=== PATIENT | male | born 1965 | race Two or more races ===

== ENCOUNTER 2018-11-12 19:22 | Emergency (ER) | payer SELFPAY ==
--- NOTE | 2018-11-12 21:32 | C.PDOC ---
History Of Present Illness 53 y/o male is brought in by ambulance for public intoxication. Patient had no prior visits here. Alcohol on breath noted. Patient denies any physical complaints. Time Seen by Provider: 11/12/18 19:25 Chief Complaint (Nursing): Substance Abuse History Per: EMS History/Exam Limitations: no limitations Onset/Duration Of Symptoms: Hrs Current Symptoms Are (Timing): Still Present Past Medical History Reviewed: Historical Data, Nursing Documentation, Vital Signs Vital Signs: Last Vital Signs Temp 97.2 F L 11/12/18 19:39 Pulse 82 11/12/18 19:39 Resp 16 11/12/18 19:39 BP 122/69 11/12/18 19:39 Pulse Ox 98 11/12/18 19:39 Family History: States: No Known Family Hx - Social History Hx Alcohol Use: Yes Hx Substance Use: No - Immunization History Hx Tetanus Toxoid Vaccination: No Hx Influenza Vaccination: No Hx Pneumococcal Vaccination: No Review Of Systems Except As Marked, All Systems Reviewed And Found Negative. Psych: Positive for: Other (alcohol intoxication) Physical Exam - Physical Exam Appears: Non-toxic, No Acute Distress, Other (alcohol on breath) Skin: Warm, Dry Head: Atraumatic, Normacephalic Eye(s): bilateral: Normal Inspection Oral Mucosa: Moist Neck: Supple Cardiovascular: Rhythm Regular, No Murmur Respiratory: Normal Breath Sounds, No Rales, No Rhonchi, No Wheezing Extremity: Bilateral: Atraumatic, Normal Color And Temperature, Normal ROM Neurological/Psych: Normal Speech, Other (Awake and alert) ED Course And Treatment O2 Sat by Pulse Oximetry: 98 (RA) Pulse Ox Interpretation: Normal Medical Decision Making Medical Decision Making: Plan: --Labs alcohol abuse/intox 0100: signed over to overnight MD to re-eval in AM when sober Disposition - Disposition Disposition Time: 01:00 Condition: IMPROVED Forms: [facility] (Swedish) - Clinical Impression Clinical Impression: Alcohol abuse - Scribe Statement The provider has reviewed the documentation as recorded by the Kaylyn Mireles Provider Attestation: All medical record entries made by the Scribe were at my direction and personally dictated by me. I have reviewed the chart and agree that the record accurately reflects my personal performance of the history, physical exam, medical decision making, and the department course for this patient. I have also personally directed, reviewed, and agree with the discharge instructions and disposition. Physician Patient Turnover Patient Signed Over To: Lamar Hoffman Handoff Comments: dispo in AM when sober
[2018-11-13 06:14] VITALS: BP 105/63; PULSE 80; RESP 16; TEMP 97.9; O2SAT 97
== END 2018-11-13 05:45 | disposition home or self-care (01) ==
LOC: C.ER 19:22
DX: F10.10 Alcohol abuse, uncomplicated (principal); Y90.9 Presence of alcohol in blood, level not specified